=== PATIENT | female | born 1980 | race Two or more races ===

== ENCOUNTER 2019-08-19 16:42 | Emergency (ER) | payer SELFPAY ==
[~2019-08-19] VITALS: Ht 160 cm; Wt 52.2 kg
--- NOTE | 2019-08-19 17:02 | NUR ---
PT IS IN ROOM #2B. DR ARENAS EVALUATED THE PT.
[2019-08-19] MEDS ORDERED: IV NORMAL SALINE 1000 ML BAG IV ONE (17:15)
[2019-08-19] MEDS ORDERED: ONDANSETRON 4 MG/2 ML VIAL IV ONE (17:15)
[2019-08-19 17:36] LABS: BASOPHILS % (AUTO) 0.6 % (0.0-2.0); EOSINOPHILS % (AUTO) 0.4 % (0.0-7.0); HEMATOCRIT 28.4 % (31.2-41.9); HEMOGLOBIN 8.8 g/dL (10.9-14.3); LYMPHOCYTES # (AUTO) 0.8 K/uL (20.0-40.0); LYMPHOCYTES % (AUTO) 15.8 % (20.5-51.5); MEAN CORPUSCULAR HEMOGLOBIN 22.8 uug (24.7-32.8); MEAN CORPUSCULAR HGB CONC 31 g/dL (32.3-35.6); MEAN CORPUSCULAR VOLUME 73.8 fL (75.5-95.3); MONOCYTES # (AUTO) 0.3 K/uL (2.0-10.0); MONOCYTES % (AUTO) 5.6 % (0.0-11.0); NEUTROPHILS # (AUTO) 4.1 K/uL (1.8-8.9); NEUTROPHILS % (AUTO) 77.6 % (38.5-71.5); PLATELET COUNT (AUTO) 243 K/uL (179-408); RED BLOOD CELL COUNT(AUTO) 3.85 MIL/uL (3.63-4.92); WHITE BLOOD COUNT (AUTO) 5.3 K/uL (3.8-11.8)
[2019-08-19] MEDS ORDERED: ONDANSETRON 4 MG/2 ML VIAL ONE (17:46)
[2019-08-19 17:56] LABS: ETHANOL < 3 MG/DL (0-0)
[2019-08-19 18:00] LABS: ALANINE AMINOTRANSFERASE 13 U/L (14-59); ALKALINE PHOSPHATASE 69 U/L (50-136); ASPARTATE AMINOTRANSFERASE 16 U/L (15-37); BILIRUBIN,DIRECT 0.1 mg/dL (0.0-0.2); BILIRUBIN,TOTAL 0.3 mg/dL (0.2-1.0); CARBON DIOXIDE 26 mmol/L (21-32); CHLORIDE 105 mmol/L (98-107); CREATININE 0.5 mg/dL (0.6-1.3); GLUCOSE 122 mg/dL (74-106); LIPASE 54 U/L (73-393); POTASSIUM 3.1 mmol/L (3.5-5.1); TOTAL PROTEIN, SERUM 6.7 g/dL (6.4-8.2); UREA NITROGEN, BLOOD 7 mg/dL (7-18)
[2019-08-19 18:01] LABS: ACETAMINOPHEN < 2.0 ug/mL (10-30)
--- NOTE | 2019-08-19 18:05 | NUR ---
PT WAS EVALUATED BY CRISIS [employer] ATTENDANT GENO CLARK ACCORDING TO ER MD REQUEST.
[2019-08-19] MEDS ORDERED: POTASSIUM CHLORIDE 20 MEQ TAB.PRT.SR PO ONE (18:30)
[2019-08-19] MEDS ORDERED: POTASSIUM CHLORIDE 20 MEQ TAB.PRT.SR ONE (18:41)
--- NOTE | 2019-08-19 18:58 | NUR ---
REPORT WAS GIVEN TO AUTOMATION MACHINE OPERATOR RN.
--- NOTE | 2019-08-19 19:02 | NUR ---
PT WAS D/C'd TO HOME. D/C INSTRUCTIONS GIVEN TO THE PT AND TO HER RELATIVES.
[2019-08-19 19:05] VITALS: BP 111/62
== END 2019-08-19 19:06 | disposition home or self-care (01) ==
LOC: ER 16:43
DX: R11.10 Vomiting, unspecified (principal); E87.6 Hypokalemia; F32.9 Major depressive disorder, single episode, unspecified; F41.9 Anxiety disorder, unspecified
CPT/HCPCS: 36415; 71045; 80048; 80076; 83690; 84484; 84702; 85025; 93005; 96361; 96374; 99284; G0480 ×2; G0481; J2405; 70030-TC; A4663; J7030